=== PATIENT | female | born 1985 | race Hispanic/Latino ===

== ENCOUNTER 2018-08-04 18:05 | Emergency (ER) | payer MEDICAID, OTHER ==
[2018-08-04 19:19] LABS: BASOPHILS % (AUTO) 0.7 % (0.0-5.0); EOSINOPHILS % (AUTO) 1.5 % (0.0-8.0); HEMATOCRIT 39.6 % (36-48); LYMPHOCYTES % (AUTO) 17.7 % (21.0-51.0); MEAN CORPUSCULAR HEMOGLOBIN 30.7 pg (27.0-33.0); MEAN CORPUSCULAR HGB CONC 34.6 g/dL (32.0-36.0); MEAN CORPUSCULAR VOLUME 88.7 fL (79-99); MONOCYTES % (AUTO) 4.1 % (3.0-13.0); PLATELET COUNT (AUTO) 210 K/uL (130-400); RED BLOOD CELL COUNT(AUTO) 4.46 MIL/uL (4.00-5.50); RED CELL DISTRIBUTION WIDTH 13.6 % (11.0-15.5); WHITE BLOOD COUNT (AUTO) 7.5 K/uL (4.8-10.8)
[2018-08-04 19:27] LABS: CREATININE 0.8 mg/dL (0.5-1.5); POTASSIUM 3.9 mmol/L (3.5-5.1)
[2018-08-04 19:32] LABS: ALBUMIN 3.9 g/dL (3.5-5.0); BILIRUBIN,TOTAL 0.4 mg/dL (0.2-1.0); TOTAL PROTEIN, SERUM 7.7 g/dL (6.0-8.3)
== END 2018-08-04 20:22 | disposition home or self-care (01) ==
LOC: EDH 18:05
DX: R06.00 Dyspnea, unspecified (principal); R06.02 Shortness of breath; R05 Cough; Z98.51 Tubal ligation status
CPT/HCPCS: 36415; 71045; 80053; 81025; 85025